=== PATIENT | male | born 1970 | race Hispanic/Latino ===

== ENCOUNTER 2024-11-15 14:08 | Emergency (ER) | payer OTHER ==
[~2024-11-15] VITALS: Ht 167.6 cm; Wt 119.3 kg
[2024-11-15] MEDS ORDERED: PREDNISONE50 MG PO (16:06)
[2024-11-15 16:36] VITALS: PULSE 78; RESP 18; TEMP 97.1; O2SAT 98
[2024-11-15 16:38] VITALS: PULSE 71; RESP 18; TEMP 98.1
== END 2024-11-15 16:39 | disposition home or self-care (01) ==
LOC: ER 14:47
DX: G51.0 Bell's palsy (principal); I10 Essential (primary) hypertension; E11.9 Type 2 diabetes mellitus without complications; E78.00 Pure hypercholesterolemia, unspecified
CPT/HCPCS: 70450; 99284